=== PATIENT | female | born 1940 | race Caucasian/White ===

== ENCOUNTER 2017-08-30 09:31 | Emergency (ER) | payer OTHER, MEDICARE ==
[~2017-08-30] VITALS: Ht 162.6 cm; Wt 68.2 kg
[2017-08-30 11:14] LABS: EOSINOPHIL (%) 0.4 % (0-5); EOSINOPHIL COUNT 0.1 K/uL (0-0.3); HEMATOCRIT 46.7 % (36.0-46.0); IMMATURE GRANULOCYTE (%) 0.4 % (0.0-0.7); IMMATURE GRANULOCYTE COUNT 0.1 K/uL; INSTRUMENT ABS NEUTROPHIL CT 14.4 K/uL; LYMPHOCYTE COUNT 0.4 K/uL (1.0-2.8); MCHC 33.2 G/DL (30.0-36.0); MCV 87.5 FL (83-99); MONOCYTE (%) 2.2 % (3-12); MONOCYTE COUNT 0.3 K/uL (0-0.8); NEUTROPHIL (%) 94.2 % (45-76); NEUTROPHIL COUNT 14.4 K/uL (1.8-6.4); RBC DIS.WIDTH-CV 12.9 % (11.8-14.6); RBC DIS.WIDTH-SD 40.9 % (39-53); RED BLOOD COUNT 5.34 M/uL (3.80-5.20); WHITE BLOOD COUNT 15.3 K/uL (4.1-10.2)
[2017-08-30 11:21] LABS: CHLORIDE 109 mEq/L (99-109); POTASSIUM 3.9 mEq/L (3.7-5.4); SODIUM 145 mEq/L (136-147)
[2017-08-30 11:24] LABS: GLUCOSE 135 mg/dL (70-99)
[2017-08-30 11:25] LABS: ANION GAP 12 MEQ/L (2-14); TOTAL BILIRUBIN 0.7 mg/dL (0.0-1.0)
[2017-08-30 11:27] LABS: ALKALINE PHOSPHATASE 88 IU/L (3-129); GFR ESTIMATE (CALCULATED) > 59 mL/min/
[2017-08-30 11:28] LABS: UREA NITROGEN (BUN) 15 mg/dL (9-23)
[2017-08-30 11:54] LABS: MEAN PLAT.VOLUME 8.8 uM^3 (9.5-12.4); PLAT.SUFFICIENCY ADEQUATE; PLATELET COUNT 271 K/uL (156-360)
[2017-08-30] MEDS ORDERED: BENTYL20 MG PO (13:53)
[2017-08-30] MEDS ORDERED: IMODIUM MS REL1 EACH PO (13:53)
[2017-08-30] MEDS ORDERED: ZOFRAN4 MG PO (13:53)
[2017-08-30 14:30] VITALS: BP 149/88
== END 2017-08-30 14:30 | disposition home or self-care (01) ==
LOC: EME 09:31
PROVIDERS: Emergency Medicine
DX: K52.9 Noninfective gastroenteritis and colitis, unspecified (principal); J44.9 Chronic obstructive pulmonary disease, unspecified; Z79.01 Long term (current) use of anticoagulants; F17.200 Nicotine dependence, unspecified, uncomplicated
CPT/HCPCS: 80053; 85025; 87493; 93005; 94640; 99281; 99285; J2405; J7030